=== PATIENT | female | born 1960 | race Caucasian/White ===

== ENCOUNTER 2023-10-16 16:07 | Outpatient (AMB) | payer OTHER, SELFPAY ==
--- NOTE | 2023-10-16 16:13 | MHC.OFFWIV ---
Intake Vital Signs 10/16/23 16:16 Height 5 ft 6 in BMI Reason not done Patient refused/unable BP 160/88 H Blood Pressure Location Rt brachial Position Sitting Pulse 94 Pulse Source Pulse Oximeter Temp 98.4 F Temp Source Oral Pulse Oximetry (%) 96 Oxygen Delivery Method Room Air Intake Visit Reasons: EP RT leg popped cant apply pressure without pain Intake Note: Pt is here today for RT leg, bottom of foot popped and is unable to put pressure on it. Patient Tobacco Use Status: Never used Tobacco Allergies No Known Allergies Allergy (Verified 10/16/23 16:15) Do you need a note to return to daycare/school/sports/work: No HPI EP RT leg popped cant apply pressure without pain HPI Details 63 yr old female presents to the office for a sick visit. Patient is reporting pain in the right foot. She jammed her foot on the pavement. History of plantar fasciitis in the past. Walks in with crutches. PFSH Social History Patient Tobacco Use Status: Never used Tobacco Physical Exam Vital Signs: Last Vital Signs Temp 98.4 F 10/16/23 16:16 Pulse 94 10/16/23 16:16 BP 160/88 H 10/16/23 16:16 Pulse Ox 96 10/16/23 16:16 Oxygen Delivery Method Room Air 10/16/23 16:16 Extrem Other: Right foot: no swelling or bruising. No tenderness on the plantar surface, Assessment & Plan Assessment & Plan (1) Contusion, foot: Code(s): S90.30XA - Contusion of unspecified foot, initial encounter Plan: Keep foot elevated. No x rays needed. Reassurance. Coding Level of Care Code Est Pt Level 3 (38818) Diagnoses Contusion, foot S90.30XA
[2023-10-16 16:16] VITALS: BP 160/88; PULSE 94; TEMP 36.9; O2SAT 96
== END 2023-10-16 16:32 | disposition home or self-care (01) ==
PROVIDERS: PCP Internal Medicine; Visit Provider Internal Medicine
DX: S90.30XA Contusion of unspecified foot, initial encounter (principal)
CPT/HCPCS: 99213